=== PATIENT | male | born 1960 | race Caucasian/White ===

== ENCOUNTER 2017-04-12 10:25 | Day surgery (SDC) | payer BC ==
[~2017-04-12] VITALS: Ht 190.5 cm; Wt 103.6 kg
[~2017-04-12 10:25] MED LIST: ASPI325T PO; CREAPOW XX; TAB-TAB PO
[2017-04-12] MEDS ORDERED: VIAG100T PO (10:55)
[2017-04-12] MEDS ORDERED: ASPI325T PO (10:55)
[2017-04-12 10:57] VITALS: BP 122/71; PULSE 101; RESP 18; TEMP 97.9; O2SAT 99
[2017-04-12 11:13] LABS: BASOPHIL # 0.1 TH/MM3 (0-0.2); BASOPHIL % 0.9 % (0.0-2.0); EOSINOPHIL # 0.1 TH/MM3 (0-0.4); EOSINOPHIL % 1.7 % (0.0-4.0); HEMATOCRIT 40.8 % (39.0-51.0); HEMO FLAGS DIFF FINAL; LYMPH % 36.2 % (9.0-44.0); LYMPHOCYTE # 2.7 TH/MM3 (1.0-4.8); MEAN CELL VOLUME 90.4 FL (80.0-100.0); MEAN CORPUSCULAR HEMOGLOBIN 29.4 PG (27.0-34.0); MEAN CORPUSCULAR HGB CONC 32.6 % (32.0-36.0); MONO % 7.5 % (0.0-8.0); NEUT % 53.7 % (16.0-70.0); PLATELET COUNT 332 TH/MM3 (150-450); RED BLOOD COUNT 4.52 MIL/MM3 (4.50-5.90); RED CELL DISTRIBUTION WIDTH 13.5 % (11.6-17.2); WHITE BLOOD COUNT 7.4 TH/MM3 (4.0-11.0)
[2017-04-12] MEDS ORDERED: SODIUM CHLOR 0.9% 1000 ML INJ 1,000 ML IV SCH (11:15)
[2017-04-12 11:23] LABS: APTT (PATIENT) 25.8 SEC (24.3-30.1); PROTHROMBIN TIME - PATIENT 10.9 SEC (9.8-11.6)
[2017-04-12 11:26] LABS: BICARBONATE 30.7 MEQ/L (21.0-32.0); POTASSIUM 3.8 MEQ/L (3.5-5.1)
[2017-04-12] MEDS ORDERED: IOHEXOL 350 MG/ML 100 ML BTL (for Cath Lab) OTHER ONE (14:10)
[2017-04-12] MEDS ORDERED: HEPARIN-NS/PF INJ 500 ML ONE (14:14)
[2017-04-12] MEDS ORDERED: MIDAZOLAM HCL 5 MG/5 ML VIAL ONE ×2 (14:14→14:33)
[2017-04-12] MEDS ORDERED: SODIUM CHLORID 0.9% 500 ML IV PRN (14:15)
[2017-04-12] MEDS ORDERED: METOPROLOL TARTRATE 25 MG TAB PO PRN (14:15)
[2017-04-12] MEDS ORDERED: INSULIN HUMAN REGULAR 1,000 UNITS/10 ML VIAL SQ PRN (14:15)
[2017-04-12] MEDS ORDERED: POVIDONE IODINE 5% (ANTISEPSIS KIT) 4 APPLICATIONS EACH NARE PRN (14:15)
[2017-04-12] MEDS ORDERED: LACTATED RINGER'S 1000 ML IV PRN (14:15)
[2017-04-12] MEDS ORDERED: CHLORHEXIDINE GLUCONATE 2 % 1 PACK (2 CLOTHS) TOPICAL PRN (14:15)
--- NOTE | 2017-04-12 15:19 | CATHPROC ---
[place]-[facility] HIS Report Study Information Study Number Admission Scheduled Start Study Start 991-17 04/12/2017 04/12/2017 Apr 12 2017 2:11PM Study Type [place] Service Left Heart Cath Cardiac Catheterization Referring Institution Admit Source Facility Department 1 Other [facility] Payment Specialist Physician and Clinical Staff Initial [place] [employer] Auditor Asif Ho,RN Railroad Auditordiane Abreu RN, Thom Recorder Pauline Wilson,TERMINAL CARMAN TECH2 Scrub Ty Tripathi,RT(R) Procedures Performed Procedure Location (Site) Vessel Name Angiogram LV LV Ventricle Coronary Angiograms LCA Left Coronary Coronary Angiograms RCA Right Coronary L Heart Cath Equipment Time Data Network Architect Description Size Mfg Part Number Used/Scraped TRANSDUCER, TRUWAVE 14:17 PARSON TAYLOR * [id number] Used W/STOCKCOCK [id number] *[id number] [id number] *[id number] [id number] *[id number] 14:17 MEDLINE IND[employer] PACK, CCL CUSTOM * Used *[id number] 14:17 Gate2Play PACER PEN, SKIN DUAL W/ RULER * [id number] Used [id number] 14:17 KidNimble WIRE, 3MMJ .035 180CM 180CM Used *[id number] PROBE COVER, STERILE 14:17 ChronoWake * [id number] Used ULTRASOUND W/ GEL [id number] 14:17 NAMIC MANIFOLD, 4 PORT * Used *[id number] 14:17 NAMIC TUBING, HIGH PRESSURE 48" 48" Used *[id number] 14:17 NYCOMED OMNIPAQUE, 350 MG, 150ML 150ML [id number] Used 14:55 NYCOMED OMNIPAQUE, 350 MG, 50ML 50ML [id number] Used [id number] 14:17 COPPOLA MEDICAL BLANKET,WARM AIR CCL * Used *[id number] 14:17 TERUMO MEDICAL SHEATH, FR5 TERUMO (10CM) FR 5 [id number] Used History: Current Medications Medication Dosage/Unit Route Frequency Last Date/Time Taken ASA Viagra History: Allergies Allergy Reaction No Known Allergies History: Risk Factors Family History of Hypertension Dyslipidemia Previous MO Previous Heart Failure Premature CAD Yes No No No No Prior Valve Prior PCI Prior CABG Surgery No No No Cerebrovascular Peripheral Artery Chronic Lung On Dialysis Diabetes Disease Disease Disease No No No No No History: Stress Tests Stress or Imaging Studies Performed Yes Standard Exercise Stress Test No Stress Echo No Stress Test SPECT Stress Test SPECT Result Stress Test SPECT Ischemia Risk/Extent Yes Positive Intermediate Stress Test CMR No Cardiac CTA Coronary Calcium Score No No History: Arrhythmias Selection Items Atrial fibrillation History: Other Current Smoker No Labs Hgb (g/dl) Hct (%) WBC (l/cumm) Platelets (thousands) 12.00-18.00 37.00-55.00 4.80-10.80 140.00-450.00 13.3 40.8 7.4 332 Glucose (mg/dl) BUN (mg/dl) Creatinine (mg/dl) BUN:Creatinine (1:x) 60.00-110.00 8.00-20.00 0.10-9.00 10.00-20.00 79 18 1.0 18 Na (meq/l) K (meq/l) CO2 (mmol/L) Ca (mg/dl) 138.00-146.00 3.80-5.10 23.00-30.00 9.00-10.50 142 3.8 30.7 8.8 INR (PTT:PT) 0.50-2.00 1 CPK-MB (ng/ML) 0.00-7.00 Not Drawn Medication Medication Total Dose (Bolus/Oral) Medication Total Dosage/Unit 1% XYLOCAINE 20 mL FENTANYL 50 mcg OXYGEN 2 l/min VERSED 5 mg Medications (Bolus/Oral) Medication Time Given Dosage/Unit Administered By Reason VERSED 04/12/2017 2:47:17 PM 5 mg Asif Ho 5 mg VERSED given in lab by Asif Ho RN in Left Antecubital via Peripheral IV. Ordered by Girma Mendoza. FENTANYL 04/12/2017 2:47:33 PM 50 mcg Asif Ho 50 mcg FENTANYL given in lab by Asif Ho RN in Left Antecubital via Peripheral IV. Ordered by Girma Conn. OXYGEN 04/12/2017 2:48:33 PM 2 l/min Asif Ho 2 l/min OXYGEN given in lab by Asif Ho RN via Nasal. Ordered by Girma Conn. 1% XYLOCAINE 04/12/2017 2:53:00 PM 20 mL Girma Conn 20 mL 1% XYLOCAINE given in lab by Girma Conn in Right Groin via Subcutaneous. Ordered by Girma Oliver. Medication (Drip) Medication Time Given Dosage/Unit Concentration/Unit Diluent (ml) Solution IV Solutions 04/12/2017 2:17:02 PM 0 mL (IV) 500 NaCl .9 Patient arrived on IV Solutions in Left Antecubital via Peripheral IV. Pump/Drip Flow = 20 ml/hr usin g NaCl .9. Ordered by Girma Conn. Initial Case Assessment Cardiovascular HR Rhythm NIBP Chest Pain 77 AFIB 133/83 0 Edema Present Skin color Skin None Normal Warm Dry Circulatory - Right Pulses Dorsalis Pedis Femoral 2 2 Scale (0,1,2,3,4,d) Circulatory - Left Pulses Dorsalis Pedis Femoral 2 2 Scale (0,1,2,3,4,d) Circulatory - Lower Extremities Color Lower Right Color Lower Left Normal Normal Neurological State Oriented to time-place- Alert Moves all extremities person Respiration - General Respiration Rate SpO2 (%) (B/min) 21 98 Final Case Assessment Cardiovascular HR Rhythm NIBP Chest Pain 90 a-fib 99/72 0 Circulatory - Right Pulses Dorsalis Pedis Femoral 2 2 Scale (0,1,2,3,4,d) Circulatory - Left Pulses Dorsalis Pedis Femoral 2 2 Scale (0,1,2,3,4,d) Neurological State Oriented to time-place- Alert Moves all extremities person Respiration - General Respiration Rate SpO2 (%) (B/min) 13 98 Chronological Log Time Study Chronological Log 14:10:43 Patient arrived via Bed. 14:10:44 Patient Name, D.O.B, / Armband Verified By R.N. 14:10:47 Consent signed by the physician and the patient and verified by the Payment Specialist staff. 14:10:48 Pre-op and post- op instructions given; patient acknowledges understanding of instructions. 14:16:57 Patient has been NPO for Less than 6Hrs. 14:16:58 Skin Breakdown-NONE 14:16:59 Patient Warmer Placed on the Table. 14:17:02 A # 20 IV was noted in the Antecubital (left). Grade = PATENT Patient arrived on IV Solutions in Left Antecubital via Peripheral IV. Pump/Drip Flow = 20 ml/h r using NaCl .9. Ordered 14:17:02 by Girma Conn. 14:17:03 History and physical on the chart or being dictated. Assessment: Initial Case, HR=77 BPM, Rhythm=AFIB, QBOS=098/83 mmhg, Chest Pain=0, Edema=None, Color=Normal, Skin = Warm, Dry Right Pulses: Glen Ped=2, Femoral=2 Left Pulses: Glen Ped=2, Femoral=2 14:17:04 Lower Right Extremities: Color=Normal Lower Left Extremities: Color=Normal Neurological: State=Alert, Ox3, GOMEZ Respiration: Resp=21 B/min, SpO2=98 % Vitals capture started with the following parameters, Patient=Adult, Interval=15 min, Initial P bgwvnjl=102 mmHg, 14:18:20 Deflation Rate=5 mmHg 14:18:54 NS=525 bpm, RDJQ=654/83 mmhg, SpO2=99.0 %, Resp=19 B/min, Pain=0, Te=10, Gomez=2 14:23:05 Reference ECG taken 14:23:53 HR=88 bpm, NIBP=89/70 mmhg, SpO2=98.0 %, Resp=18 B/min, Pain=0, Te=10, Gomez=2 14:26:50 NIBP STAT measurement started. 14:27:47 HR=92 bpm, YBSG=075/84 mmhg, SpO2=99.0 %, Resp=15 B/min 14:28:50 HR=82 bpm, DZYR=795/83 mmhg, SpO2=99.0 %, Resp=10 B/min 14:30:09 Pressure channel 1 zeroed. 14:33:56 HR=91 bpm, GSIQ=506/78 mmhg, WpI2=719.0 %, Resp=16 B/min 14:38:55 HR=93 bpm, OVFZ=398/86 mmhg, SnM2=086.0 %, Resp=18 B/min 14:40:02 Patient is consented for ZOË prior to Left heart catheterization procedure. nuclear technologist arriv ed. 14:40:19 MD arrived. 14:43:56 HR=84 bpm, EMBA=306/79 mmhg, GaN6=737.0 %, Resp=17 B/min Time Out. Correct patient, correct procedures, correct physician, power injector loaded with co ntrast with surgical team 14:44:56 present. Time Out Concurred by MD and individual staff in procedure 14:47:17 5 mg VERSED given in lab by Asif Ho RN in Left Antecubital via Peripheral IV. Order ed by Girma Conn. 14:47:33 50 mcg FENTANYL given in lab by Asif Ho RN in Left Antecubital via Peripheral IV. O rdered by Girma Conn. 14:47:43 ZOË in progress. 14:48:33 2 l/min OXYGEN given in lab by Asif Ho RN via Nasal. Ordered by Girma Conn. 14:48:57 HR=94 bpm, WOEW=015/77 mmhg, SpO2=98.0 %, Resp=18 B/min 14:50:53 ZOË procedure completed. Proceeding with Heart Catheterization. 14:52:56 Case Start 14:53:00 20 mL 1% XYLOCAINE given in lab by Girma Conn in Right Groin via Subcutaneous. Ordered by Girma Conn. 14:54:00 HR=90 bpm, PZFV=922/66 mmhg, SpO2=98.0 %, Resp=14 B/min 14:54:22 Access site was Right Femoral Artery. 14:54:32 A SHEATH, FR5 TERUMO (10CM) FR 5 was advanced into the Fem Art (right) using the Percutaneo us technique. A PIGTAIL ANG. INFINITI CATHETER FR 5 was advanced over a wire. OMNIPAQUE, 350 MG, 50ML 50ML wa s used for 14:54:39 injections. Recorded Pressure: LV, HR=93, Condition=Condition 1 14:56:40 (Left Ventricle) LV 91/7/12 14:57:36 The LV was injected at 10 cc/sec for a total of 30. OMNIPAQUE, 350 MG, 50ML 50ML used. Recorded Pressure: LV, Ao, HR=89, Condition=Condition 1 14:58:48 (Left Ventricle) LV 93/8/11, (Aorta) Ao 92/66/78 14:58:55 HR=92 bpm, TEKU=468/69 mmhg, SpO2=98.0 %, Resp=13 B/min 14:59:32 Catheter was removed A JL 4.0 INFINITI CATHETER FR 5 was advanced over a wire. OMNIPAQUE, 350 MG, 150ML 150ML was us ed for 14:59:43 injections. 15:00:52 The LCA was injected and visualized at various angles. OMNIPAQUE, 350 MG, 150ML 150ML used . 15:02:03 Catheter was removed A AR MOD INFINITI CATHETER FR 5 was advanced over a wire. OMNIPAQUE, 350 MG, 150ML 150ML was us ed for 15:02:04 injections. 15:03:14 The RCA was injected and visualized at various angles. OMNIPAQUE, 350 MG, 150ML 150ML used . 15:03:56 HR=92 bpm, NIBP=99/72 mmhg, SpO2=98.0 %, Resp=13 B/min 15:04:09 Catheter was removed 15:04:12 Case End Assessment: Final Case, HR=90 BPM, Rhythm=a-fib, NIBP=99/72 mmhg, Chest Pain=0 Right Pulses: Glen Ped=2, Femoral=2 15:04:24 Left Pulses: Glen Ped=2, Femoral=2 Neurological: State=Alert, Ox3, GOMEZ Respiration: Resp=13 B/min, SpO2=98 % 15:04:45 Sheath(s) left in place, will be removed in Holding Area 15:04:55 Sterile dressing applied to site 15:08:04 No case complications noted. 15:08:13 Cine recording checked. 15:08:22 Bedside Report will be given. 15:08:38 A Left Heart Cath was performed. 15:08:45 Clinical correlaton risk stratification. 15:10:59 Patient moved to bed 15:11:07 Patient transported to DOCU. End Study - Contrast Media Used In Study Contrast Total Opened (mL) Total Used (mL) Total Wasted (mL) Omnipaque 60 60 0 End Study - Maximum Contrast Load Max Contrast Load (mL) 517.5 End Study - Radiation Exposure Fluoro Time (minutes) 1.7 End Study - Patient Disposition Complications Transferred To No Telemetry Bed
[2017-04-12] MEDS ORDERED: SODIUM CHLOR 0.9% 1000 ML INJ 500 ML IV SCH (15:21)
[2017-04-12 15:56] LABS: HDL CHOLESTEROL 53.6 MG/DL (40.0-60.0)
--- NOTE | 2017-04-12 19:17 | EKG ---
Date Performed: 04/12/2017 Time Performed: 11:18:32 PTAGE: 57 years EKG: Atrial fibrillation Left anterior fascicular block Septal T wave changes are nonspecific Ab normal ECG PREVIOUS TRACING : 08/10/2011 13.29 Compared to the previous tracing a fib now present DOCTOR: Girma Conn Interpretating Date/Time 04/12/2017 19:16:01
--- NOTE | 2017-04-13 08:33 | MA ---
cc: GIRMA QUINTANILLA DATE: 04/12/2017 INDICATIONS: Cardiomyopathy, intermediate risk nuclear myocardial perfusion study. Preoperative evaluation. Chronic atrial fibrillation. PROCEDURE PERFORMED: 1. Retrograde left heart catheterization with left ventriculography and selective coronary angiography. 2. Moderate sedation. ACCESS SITE: Right femoral artery. EQUIPMENT USED: A 5-[place]er pigtail catheter, 5-[place] JL4 and AR modified coronary artery catheters. MEDICATIONS: Versed IV. Fentanyl IV. CONTRAST: Omnipaque 60 cc. COMPLICATIONS: None. METHOD OF HEMOSTASIS: Manual compression. RESULTS A. HEMODYNAMICS: Heart rate 98 beats per minute. Left ventricular end-diastolic pressure 8 mmHg. Left ventricle 90/8. Aorta 90/56/78. B. LEFT VENTRICULOGRAPHY: Left ventricular ejection fraction 40%. Wall motion - moderate global hypokinesis. No mitral regurgitation. C. CORONARY ANGIOGRAPHY: The left main coronary artery is patent. The left anterior descending coronary artery is patent. D1 patent. D2 patent. The left circumflex artery is patent. OM1 is a large vessel which is patent. The right coronary artery is a dominant vessel which is patent. PDA patent. PLV patent. DIAGNOSES: 1. Widely patent coronary arteries. 2. Moderate left ventricular systolic dysfunction. 3. Nonischemic cardiomyopathy. DISPOSITION: Mr. Keating will be monitored on telemetry after his procedure. He can be discharged home later today. He will be scheduled for his atrial fibrillation ablation with Dr. Hummel in the near future. Girma Quintanilla MD OQ/SSB /3:17 PM /8:22 AM MTDD
--- NOTE | 2017-04-13 10:33 | CF ---
cc: GIRMA CONN DATE: 04/12/2017 PROCEDURE PERFORMED: 1. Transesophageal echocardiogram. 2. Moderate sedation. INDICATION: Atrial fibrillation. Cardiomyopathy. Evaluation for left atrial thrombus and PFO. DESCRIPTION OF PROCEDURE: After the patient was sedated, a transesophageal probe was placed without difficulty. Tomographic images were obtained. Left ventricular function was decreased to a moderate degree with estimated ejection fraction of 40% with moderate global hypokinesis. The aortic valve was structurally normal; there was no evidence of aortic valve stenosis or regurgitation. The mitral valve was structurally normal; there was no evidence of mitral valve stenosis or regurgitation. There was evidence of trace tricuspid regurgitation. The left atrial appendage was visualized and there was no evidence of left atrial thrombus. Bubble study was performed and there was no evidence of zcreh-qe-zfnk shunt. The descending thoracic aorta had no significant plaque. DIAGNOSES: 1. No evidence of left atrial thrombus. 2. No evidence of patent foramen ovale. 3. Moderate left ventricular systolic dysfunction. 4. Trace tricuspid regurgitation. IMPRESSION: No evidence of left atrial thrombus. Girma Conn MD OQ/SSB /3:16 PM /10:21 AM MTDMarvin
== END 2017-04-12 19:42 | disposition home or self-care (01) ==
LOC: HDOC 10:25 → HDIC 10:26 → HDOC 19:42
PROVIDERS: ATTEND Internal Medicine Interventional Cardiology
DX: I42.9 Cardiomyopathy, unspecified (principal); I48.2 Chronic atrial fibrillation; I10 Essential (primary) hypertension
CPT/HCPCS: 80048; 80061; 85025; 85610; 85730; 93005; 93312; 93320; 93325; 93458; C1769; C1893; J1644; J2250; J3010; Q9967